=== PATIENT | female | born 1955 | race Caucasian/White ===

== ENCOUNTER 2020-04-29 07:44 | Day surgery (SDC) | payer BC ==
[~2020-04-29 07:44] MED LIST: Lactated Ringers 1,000 ML IV SCH; Lidocaine 1%/Sod Bicarbonate in NS 8.4% 1 ML Syringe IDERM PRN; Sodium Chloride 0.9% 10 ML Syringe FLUSH PRN
--- NOTE | 2020-04-29 07:47 | PCM.PREANE ---
Preanesthetic Assessment - Anesthesia/Transfusion/Family Hx Anesthesia History: Prior Anesthesia Reaction Type of Anesthesia Reaction: Excessive Nausea/Vomiting Family History of Anesthesia Reaction: No Transfusion History: No Prior Transfusion(s) Intubation History: Unknown - Review of Systems General: No Symptoms Pulmonary: No Symptoms (Quit smoking in 2015. ETOH: occasionally) Cardiovascular: No Symptoms (HTN, elevated cholesterol), Palpitations Gastrointestinal: No Symptoms (GERD-history of hiatal hernia) Neurological: No Symptoms Other: Reports: None, Sinus Problem (seasonal allergies) - Physical Assessment NPO Status Date: 04/29/20 NPO Status Time: 01:00 Vital Signs: HR:82 Sat:97% B/P:117/70 Temp:97.4 Resp:16 Height: 1.63 m Weight: 104 kg ASA Class: 2 Mental Status: Alert & Oriented x3 Airway Class: Mallampati = 2 Dentition: Reports: Normal Dentition, [place](s), Caries Thyro-Mental Finger Breadths: 3 Mouth Opening Finger Breadths: 3 ROM/Head Extension: Full Lungs: Clear to Auscultation, Normal Respiratory Effort Cardiovascular: Regular Rate, Regular Rhythm, No Murmurs - Lab Values: All labs reviewed and noted and within acceptable ranges to proceed with scheduled procedure. Note: sodium= 132 on February - Imaging/EKG Impressions: EKG: SR rate=71, consider anteroseptal infarct, borderline T abnormalities inferior leads. - Allergies Allergies/Adverse Reactions: Allergies Allergy/AdvReac Type Severity Reaction Status Date / Time codeine Allergy Nausea and Verified 07/22/15 07:13 Vomiting morphine Allergy Nausea and Verified 07/22/15 07:12 Vomiting - Anesthesia Plan Pre-Op Medication Ordered: None - Acknowledgements Anesthesia Type Planned: MAC Pt an Appropriate Candidate for the Planned Anesthesia: Yes Alternatives and Risks of Anesthesia Discussed w Pt/Guardian: Yes Pt/Guardian Understands and Agrees with Anesthesia Plan: Yes PreAnesthesia Questionnaire - CURRENT (IN HOUSE) MEDS Current Meds: Current Medications Lactated Ringer's (Ringers, Lactated) 1,000 mls @ 125 mls/hr IV ASDIRECTED JAVED Stop: 04/29/20 23:00 Lidocaine/Sodium Bicarbonate (Buffered Lidocaine 1% In Ns 8.4%) 0.25 ml IDERM ONETIME PRN PRN Reason: Prior to IV Start Stop: 04/29/20 18:00 Sodium Chloride (Saline Flush) 10 ml FLUSH ASDIRECTED PRN PRN Reason: Keep Vein Open Stop: 04/29/20 18:00
[2020-04-29] MEDS ORDERED: Propofol 200 MG/20 ML SDV ONE ×2 (09:15→10:34)
--- NOTE | 2020-04-29 11:14 | PCM48HPAN ---
Post Anesthesia Note - EVALUATION WITHIN 48HRS OF ANESTHETIC Vital Signs in Normal Range: Yes Patient Participated in Evaluation: Yes Respiratory Function Stable: Yes Airway Patent: Yes Cardiovascular Function Stable: Yes Hydration Status Stable: Yes Pain Control Satisfactory: Yes Nausea and Vomiting Control Satisfactory: Yes Mental Status Recovered: Yes Vital Signs: Last Vital Signs Temp 36.3 C 04/29/20 08:00 Pulse 82 04/29/20 08:00 Resp 16 04/29/20 08:00 BP 117/70 04/29/20 08:00 Pulse Ox 97 04/29/20 08:00
--- NOTE | 2020-04-30 09:12 | PCM.PRNOTE ---
- Free Text/Narrative Note: Date: 04/29/2020 Procedure: screening colonoscopy Endoscopist: Wesley Guevara MD Findings: Ileocecal valve visualized. Prep was excellent. Multiple small polyps identified. Detailed Report: The patient was taken to the endoscopy suite and placed in left lateral decubitus position. Time out was performed and monitored anesthesia care was initiated. The anus appeared normal. Digital rectal exam was unremarkable. The lubricated colonoscope was then inserted and advanced all the way to the cecum. The ileocecal valve was visualized. The prep was noted to be excellent. On slow withdrawal of the scope, mucosal surfaces were carefully inspected. Along the length of the colon, a few small polyps were identified and biopsied with forceps. Tissue bases were fulgurated. A total of seven polyps, all less than 1 cm, were removed. No diverticular disease or hemorrhoids noted. The patient tolerated the procedure well.
== END 2020-04-29 11:45 | disposition home or self-care (01) ==
LOC: JD.SDS 07:44
PROVIDERS: ATTEND Surgery
DX: Z12.11 Encounter for screening for malignant neoplasm of colon (principal); D12.0 Benign neoplasm of cecum; K62.1 Rectal polyp; K21.9 Gastro-esophageal reflux disease without esophagitis; I10 Essential (primary) hypertension; E78.00 Pure hypercholesterolemia, unspecified; Z88.5 Allergy status to narcotic agent; Z87.891 Personal history of nicotine dependence; Z79.899 Other long term (current) drug therapy
CPT/HCPCS: 45380; J2704; J7120; 00812